=== PATIENT | female | born 1960 | race Asian ===

== ENCOUNTER 2021-01-18 08:10 | Day surgery (SDC) | payer BC, SELFPAY ==
[~2021-01-18] VITALS: Ht 160 cm; Wt 70.3 kg
[2021-01-18] MEDS ORDERED: KETOROLAC TROMETHAMINE 30 MG VIAL IVP PRN (10:30)
[2021-01-18] MEDS ORDERED: METOCLOPRAMIDE HCL 10 MG/2 ML VIAL IVP PRN (10:30)
[2021-01-18] MEDS ORDERED: HYDROmorphone 1 MG/ML INJ. CARTRIDGE IVP PRN (10:30)
[2021-01-18] MEDS ORDERED: HYDROmorphone 1 MG/ML INJ. CARTRIDGE ONE (11:28)
[2021-01-18 15:01] VITALS: BP_SYST 145
== END 2021-01-18 13:10 | disposition home or self-care (01) ==
LOC: SDS 08:10 → SMU 08:10 → SDS 13:10
PROVIDERS: ATTEND Obstetrics & Gynecology
DX: N95.0 Postmenopausal bleeding (principal); R93.89 Abnormal findings on diagnostic imaging of other specified body structures; I10 Essential (primary) hypertension; E11.9 Type 2 diabetes mellitus without complications; Z88.1 Allergy status to other antibiotic agents; Z88.5 Allergy status to narcotic agent; Z90.49 Acquired absence of other specified parts of digestive tract; Z98.890 Other specified postprocedural states; Z20.822 Contact with and (suspected) exposure to COVID-19
CPT/HCPCS: 36415; 58558; 71046; 86886; 86900; 86901; 93005; J1170; U0003; 88300